=== PATIENT | male | born 1975 | race Caucasian/White ===

== ENCOUNTER 2016-08-09 12:17 | Emergency (ER) | payer OTHER ==
[2016-08-09 12:43] VITALS: BMI 24.5
[2016-08-09] MEDS ORDERED: HYDROmorphone 1 MG INJECTION IV ONE ×2 (15:12→16:29)
[2016-08-09] MEDS ORDERED: NS 1,000 ML IV ONE (15:12)
[2016-08-09] MEDS ORDERED: ACETAMINOPHEN 325 MG/TAB TABLET PO ONE (15:12)
[2016-08-09] MEDS ORDERED: ONDANSETRON HCL 4 MG/2 ML VIAL IV ONE (15:12)
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
[2016-08-09] MEDS ORDERED: Pharmacy Review for Metformin - IV Contrast Given SCH (16:00)
[2016-08-09 16:54] LABS: AUTOMATED BASOPHIL 0.3 % (0-2); AUTOMATED LYMPH 3.2 % (17-44); AUTOMATED MONOCYTE 7.1 % (3-10); AUTOMATED NEUTROPHIL 89.4 % (45-76); MPV 8.4 fL (7.4-10.4)
[2016-08-09 16:58] LABS: LEUKOCYTES/URINE NEG (NEGATIVE); NITRITE/URINE NEG (NEGATIVE); RBC/URINE TNTC (0-2); URINE OCCULT BLOOD 3+ (NEG/TRACE)
[2016-08-09 17:01] LABS: BLOOD UREA NITROGEN 14 MG/DL (9-20); CALCIUM 9.3 MG/DL (8.4-10.2); CALCULATED OSMOLALITY 265 MOs/Kg (270-290); CHLORIDE 99 mEq/L (98-107); GLUCOSE 97 MG/DL (70-99); SODIUM LEVEL 137 mEq/L (137-146); TOTAL PROTEIN 8.2 G/DL (6.3-8.2)
--- NOTE | 2016-08-09 17:34 | DIRPT ---
CLINICAL DATA: Right-sided abdominal pain and fever. EXAM: CT ABDOMEN AND PELVIS WITH CONTRAST TECHNIQUE: Multidetector CT imaging of the abdomen and pelvis was performed using the standard protocol following bolus administration of intravenous contrast. CONTRAST: 100 cc Isovue 370 COMPARISON: CT scans dated 07/18/2016 and 05/20/2016 FINDINGS: Lower chest: Stable scarring at the right lung base laterally. Otherwise normal. Hepatobiliary: Gallbladder has been removed. Chronic slight dilatation of the intrahepatic bile ducts. Chronic loculated fluid around the inferior aspect of the right lobe of the liver with a 3.2 cm abscess at the tip of the right lobe of the liver. Pancreas: Normal. Spleen: Normal. Adrenals/Urinary Tract: Normal ureters and left kidney. Stable 10 mm stone in the upper pole of the right kidney. Stable inflammatory changes in the perinephric space particularly adjacent to the lower pole of the right kidney. No hydronephrosis. Bladder is normal. Stomach/Bowel: Most of the colon has been removed. Moderate stool in the distal remnant of the colon, essentially unchanged. No dilated small bowel. Stomach appears normal. Vascular/Lymphatic: Normal. Reproductive: Normal. Other: There is a persistent multiloculated irregular fluid collection extending from adjacent to the inferior tip of the right lobe of the liver along the right pericolic gutter and anterior to the right psoas muscle into the right lower quadrant consistent with a residual abscess. The inferior portion of the abscess has appreciably diminished. No new abscesses. Musculoskeletal: No acute abnormalities. IMPRESSION: Improving intra-abdominal abscess in the right pericolic gutter. There is residual pus adjacent to the tip of the right lobe of the liver. Electronically Signed By: Alfredo Kimbrough M.D. On: 08/09/2016 17:31
[2016-08-09] MEDS ORDERED: PIPERACILLIN AND TAZOBACTAM 4.5 GM in D5W 100 ML IV ONE (18:02)
[2016-08-09 18:31] VITALS: BP 135/72; PULSE 115; TEMP 98.9
== END 2016-08-09 18:40 | disposition short-term general hospital (02) ==
LOC: ED 12:17
DX: K65.1 Peritoneal abscess (principal)
CPT/HCPCS: 36415; 74177; 80053; 81001; 83605; 85025; 87040; 96361; 96365; 96375; 96376; 99284; A9698; J1170; J2405; J2543; J3490; J7060

== ENCOUNTER 2016-09-02 11:37 | Emergency (ER) | payer SELFPAY ==
[2016-09-02 11:53] VITALS: BMI 24.4
[2016-09-02] MEDS ORDERED: Pharmacy Review for Metformin - IV Contrast Given SCH (12:00)
[2016-09-02 12:14] LABS: AUTOMATED BASOPHIL 0.2 % (0-2); AUTOMATED EOSINOPHIL 0.2 % (0-5); AUTOMATED LYMPH 3.5 % (17-44); AUTOMATED MONOCYTE 6.5 % (3-10); AUTOMATED NEUTROPHIL 89.6 % (45-76); MPV 7.4 fL (7.4-10.4)
[2016-09-02 12:18] LABS: LEUKOCYTES/URINE 1+ (NEGATIVE); NITRITE/URINE NEG (NEGATIVE); RBC/URINE 0-2 (0-2); URINE OCCULT BLOOD 3+ (NEG/TRACE)
[2016-09-02 12:22] LABS: BLOOD UREA NITROGEN 12 MG/DL (9-20); CALCIUM 9.4 MG/DL (8.4-10.2); CALCULATED OSMOLALITY 261 MOs/Kg (270-290); CHLORIDE 99 mEq/L (98-107); CPK TOTAL WITH POSSIBLE MB 51 IU/L (55-170); GLUCOSE 116 MG/DL (70-99); SODIUM LEVEL 135 mEq/L (137-146); TOTAL PROTEIN 8.3 G/DL (6.3-8.2)
[2016-09-02 12:24] LABS: PARTIAL THROMB. TIME 29.2 SEC (22-35); PT-INR 1.1
[2016-09-02] MEDS ORDERED: ACETAMINOPHEN 325 MG/TAB TABLET PO ONE (13:09)
[2016-09-02] MEDS ORDERED: IBUPROFEN 800 MG TAB PO ONE (13:09)
--- NOTE | 2016-09-02 13:26 | DIRPT ---
CLINICAL DATA: Abdominal pain, right-sided pain for 2 years EXAM: CHEST 2 VIEW COMPARISON: None. FINDINGS: There is blunting of the right costophrenic angle likely chronic scarring. There is no focal parenchymal opacity. There is no pleural effusion or pneumothorax. The heart and mediastinal contours are unremarkable. The osseous structures are unremarkable. IMPRESSION: No active cardiopulmonary disease. Electronically Signed By: Leanne Canales On: 09/02/2016 13:23
[2016-09-02] MEDS ORDERED: ONDANSETRON HCL 4 MG/2 ML VIAL IV ONE (14:18)
[2016-09-02] MEDS ORDERED: HYDROmorphone 1 MG INJECTION IV ONE ×2 (14:18→15:58)
[2016-09-02] MEDS ORDERED: NS 1,000 ML IV ONE (14:18)
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
[2016-09-02 16:13] VITALS: TEMP 97.8
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
[2016-09-02 18:03] VITALS: BP 122/75; PULSE 95
== END 2016-09-02 18:00 | disposition short-term general hospital (02) ==
LOC: ED 11:37
DX: L02.211 Cutaneous abscess of abdominal wall (principal)
CPT/HCPCS: 36415; 71020; 74177; 80053; 81001; 82550; 83605; 83880; 84484; 85025; 85610; 85730; 87040; 93005; 96361; 96374; 96375; 96376; 99284; A9698; J1170; J2405; J3490